=== PATIENT | female | born 1985 | race Caucasian/White ===

== ENCOUNTER → 2017-12-13 | Outpatient (CLI) | END | disposition home or self-care (01) ==

== ENCOUNTER 2018-06-26 11:42 | Inpatient (IN) | payer MEDICAID ==
[~2018-06-26] VITALS: Ht 162.6 cm; Wt 67.2 kg
[2018-06-26] MEDS ORDERED: LACTATED RINGER'S 1,000 ML IV SCH ×2 (11:46→19:40)
[2018-06-26] MEDS ORDERED: MISOPROSTOL 200 MCG TAB PR PRN ×2 (12:00→20:00)
[2018-06-26] MEDS ORDERED: METHYLERGONOVINE 0.2 MG INJ IM PRN ×2 (12:00→20:00)
[2018-06-26] MEDS ORDERED: CEFAZOLIN 2 GM/50 ML (PMX) 50 ML IVPB SCH (12:00)
[2018-06-26] MEDS ORDERED: OXYTOCIN 30 UNITS/LR 500 ML IV PRN ×2 (12:00→20:00)
[2018-06-26] MEDS ORDERED: CARBOPROST 250 MCG INJ IM PRN ×2 (12:00→20:00)
[2018-06-26] MEDS ORDERED: OXYTOCIN 30 UNITS/LR 500 ML IV SCH (12:00)
[2018-06-26 12:24] VITALS: BP 111/68; PULSE 72; RESP 16
[2018-06-26 12:27] VITALS: Ht 162.6 cm; Wt 67.2 kg
[2018-06-26] MEDS ORDERED: URSO300C21 PO (12:37)
[2018-06-26] MEDS ORDERED: ONDANSETRON 4 MG INJ IV STA (12:58)
[2018-06-26] MEDS ORDERED: METOCLOPRAMIDE 10 MG INJ IV ONE (13:00)
[2018-06-26] MEDS ORDERED: FAMOTIDINE 20 MG INJ IV ONE (13:00)
--- NOTE | 2018-06-26 13:40 | PREAC ---
Date/Time of Note Date/Time of Note DATE: 06/26/18 TIME: 13:39 Anesthesia Eval and Record Evaluation Time Pre-Procedure Interview DATE: 06/26/18 TIME: 13:39 Age 33 Sex female NPO: 8 hrs Preoperative diagnosis term labor, previous Csection Planned procedure repeat Csection Past Medical History Past Medical History: None Surgery & Anesthesia Issues No known issue Meds Anticoagulation: No Beta Inge within 24 hr: No Reason Beta Inge not given: Pt. not on B-Inge Reported Medications Ursodiol* (Actigall*) 300 Mg Cap, 300 MG PO TID, #90 CAP 06/26/18 Current Medications Lactated Ringer's 1,000 ml @ 125 mls/hr Q8H IV Last administered on 06/26/18at 12:37; Admin Dose 125 MLS/HR; Start 06/26/18 at 11:46 Cefazolin Sodium/ Dextrose 50 ml @ 100 mls/hr ONCE IVPB ; Start 06/26/18 at 12:00 Oxytocin/Lactated Ringer's 500 ml @ 125 mls/hr POST IV ; Start 06/26/18 at 12:00 Oxytocin/Lactated Ringer's 500 ml @ 0 mls/hr ONCE PRN IV .VAGINAL BLEEDING; Start 06/26/18 at 12:00 Methylergonovine Maleate (Methergine) 0.2 mg ONCE PRN IM .VAGINAL BLEEDING; Start 06/26/18 at 12:00 Carboprost Tromethamine (Hemabate) 250 mcg ONCE PRN IM .VAGINAL BLEEDING; Start 06/26/18 at 12:00 Misoprostol (Cytotec) 1,000 mcg ONCE PRN LA .VAGINAL BLEEDING; Start 06/26/18 at 12:00 Meds reviewed: Yes Allergies Coded Allergies: No Known Allergy (Unverified , 06/26/18) Allergies Reviewed: Yes Labs/Studies Labs Reviewed: Reviewed by anesthesiologist Result Diagram: 06/26/18 1210 Laboratory Tests 06/26/18 12:10 Blood Bank Test 06/26/18 12:10 Blood Type O POSITIVE Rh Immune Globulin Candidate NO test: Positive Pre-procedure Exam Last vitals Vital Signs Date Temp Pulse Resp B/P (MAP) Pulse Ox O2 O2 Flow FiO2 Time Delivery Rate 06/26/18 98.2 72 16 111/68 Room Air 12:24 (82) Airway: Adequate mouth opening, Adequate thyromental dist Mallampati: Mallampati III Teeth: Normal Lung: Normal Heart: Normal ASA Physical Status ASA physical status: 2 Emergency: None Planned Anesthetic Neuraxial: Spinal Planned Pain Management Sub-arachniod narcotics, Parenteral pain med, Other neuraxial med Pre-operative Attestations Prior to commencing anesthesia and surgery, the patient was re-evaluated, there was verification of: *The patient's identity *The results of appropriate recent lab work and preoperative vital signs *The above evaluation not changing prior to induction *Anesthetic plan, risk benefits, alternative and complications discussed with patient/family; questions answered; patient/family understands, accepts and wishes to proceed. CRISTINA JAIME MD Jun 26, 2018 13:40
[2018-06-26] MEDS ORDERED: ONDANSETRON 4 MG INJ IV PRN ×2 (14:00)
[2018-06-26] MEDS ORDERED: AZITHROMYCIN 500MG/NS (PMX) 250 ML IVPB ONE ×2 (14:00→17:30)
[2018-06-26] MEDS ORDERED: KETOROLAC 30 MG INJ IV PRN (14:00)
[2018-06-26] MEDS ORDERED: DIPHENHYDRAMINE 50 MG INJ IV PRN ×2 (14:00)
[2018-06-26] MEDS ORDERED: HYDROmorphONE 1 MG/5 ML IV SYRINGE IV PRN ×3 (14:00)
[2018-06-26] MEDS ORDERED: ZOLPIDEM 5 MG TAB PO PRN (14:00)
[2018-06-26] MEDS ORDERED: FENTAnyl 50 MCG/ML VIAL IV PRN ×2 (14:00)
[2018-06-26] MEDS ORDERED: MEPERIDINE 25 MG INJ IV PRN (14:00)
[2018-06-26] MEDS ORDERED: HYDROmorphONE 0.5 MG/0.5 ML SYG IV PRN ×2 (14:00)
[2018-06-26] MEDS ORDERED: NALOXONE (0.4 MG/ML) INJ IV PRN (14:00)
[2018-06-26] MEDS ORDERED: EPINEPHrine 1 MG INJ ONE (14:03)
[2018-06-26] MEDS ORDERED: morphine SULFATE/PF (10 MG/10 ML) INJ ONE (14:03)
[2018-06-26] MEDS ORDERED: OXYTOCIN 10 UNIT INJ ONE (14:04)
--- NOTE | 2018-06-26 17:02 | PAC ---
Date/Time of Note Date/Time of Note DATE: 06/26/18 TIME: 17:02 Post-Anesthesia Notes Post-Anesthesia Note Last documented vital signs Vital Signs Date Temp Pulse Resp B/P (MAP) Pulse Ox O2 O2 Flow FiO2 Time Delivery Rate 06/26/18 98.2 72 16 111/68 Room Air 12:24 (82) Activity: WNL Respiratory function: WNL Cardiovascular function: WNL Mental status: Baseline Pain reasonably controlled: Yes Hydration appropriate: Yes Nausea/Vomiting absent: Yes CRISTINA JAIME MD Jun 26, 2018 17:02
--- NOTE | 2018-06-26 17:06 | HP ---
Date/Time of Note Date/Time of Note DATE: 06/26/18 TIME: 17:03 OB - History Hx of Present Free Text/Dictation 33-year-old female 3 para 1 AB 1 at 37+ weeks gestation admitted for repeat and tubal ligation because of cholestasis Last Menstrual Period: Oct 06, 2017 Estimated Due Date: Jul 14, 2018 : 3 Para: 1 Spontaneous : 1 Care: Good Care Ultrasounds: Normal mid trimester US Obstetrical Complications: Other (Cholestasis of ) Medical Complications: Other (Previous x1) Past Family/Social History * Past Medical, Surgical, Family and Obstetric Histories reviewed from chart. Blood Type: O+ Rubella: immune RPR/VDRL: Negative GBS Status: Negative HBsAG: Negative OB Admission Exam Vital Signs Vital Signs Vital Signs Date Temp Pulse Resp B/P (MAP) Pulse Ox O2 O2 Flow FiO2 Time Delivery Rate 06/26/18 98.2 72 16 111/68 Room Air 12:24 (82) Physical Exam HEENT: WNL Heart: Rhythm Normal Lungs: Clear, Equal Abdomen: WNL Extremities: Normal Reflexes: Normal Cervical Dilatation: None Effacement: 0% Station: -3 Membranes: Intact Heart Rate: 140's Accelerations: Accelerations Present Decelerations: No Decelerations Varibility: Marked Contractions on Admission: None Last 72 hours Lab Results CBC & BMP 06/26/18 12:10 OB Assessment/Plan Reason for admission: section Other Assessment: 37+ weeks gestation Cholestasis of Previous x1 Desires sterilization Other plan: Repeat and tubal ligation DANE BLAND MD Jun 26, 2018 17:06
--- NOTE | 2018-06-26 17:08 | OPR ---
Operative Report Planned Procedure Procedure date Jun 26, 2018 Procedure(s) Repeat and tubal ligation Performed by see signature line Corn Cutter: BRET WILSON M.D. Anesthesiologist: CRISTINA JAIME MD Pre-procedure diagnosis 37+ weeks gestation Previous section Orthostasis of Desired sterilization [id number] Anesthesia Type: Enlvc9h spinal Post-Procedure Post-procedure diagnosis Status post repeat and tubal ligation Findings Live Baby in OT position Clear amniotic fluid Normal-appearing right and left fallopian tubes and ovaries Estimated Blood Loss: 500 - 600 mls Specimen(s) Segments of right and left fallopian tubes Grafts/Implant(s) none Complication(s) none Pt Condition post procedure: stable Disposition: PACU Procedure Description Under satisfactory anaesthesia a Pfannenstiel incision was made two fingerbreadth above and parallel to the symphysis of pubis around the previous scar and previous scar was removed Incision was extended laterally to the border of the Recti muscles on either sides. Incision was carried down with sharp and blunt dissection until fascia was reached. Anterior Recti muscle fascia was incised in mid portion and incision extended laterally to the border of skin incision. Fascia was mobilized from muscle superiorly and Recti muscles were from midline using sharp and blunt dissection. Peritoneum was visualized; Avoiding bowel and bladder it was incised . Incision was extended superiorly and inferiorly. Bladder blade was placed. Posterior peritoneum covering the lower segment of the uterus and lower segment of the uterus were incised.Low transverse uterine incision was made on lower segment of the uterus. Incision extended laterally to the border of Round Lig. on either sides and baby was delivered from OT. position . Amniotic fluid appeared clear. Cord blood was obtained and cord had 3 vessels . Placenta was delivered spontaneously and appeared intact and complete. Intrauterine cavity was rubbed with a laparotomy sponge. Uterine incision was closed in 2 layers using running stitches of No1 Monocryl. Hemostasis appeared secure. Ovaries and Fallopian tubes were within normal limits. Bilateral Tubal Ligation was performed by following procedure: R fallopian tube was raised in mid portion; a Mili clamp was placed below the fimbriae extending to proximal portion of the fallopian tube. Another clamp was placed parallel to the first and after incising the fallopian tube the stump was sutured using 0 Vicryl stitch. Hemostasis was secure . Same procedure was done on fallopian tube on the opposite side. Hemostasis appeared to be secure on ligated sites of either fallopian tubes. Announcing needle, lap sponge and instrument count to be correct abdomen was closed in layers as follows: Peritoneum and Recti muscles with running stitches of 20 Vicryl. Fascia with running stitch of No 1 PDS. Subcutaneous tissue with running stitches of 20 Chromic and skin was closed using edwin. Patient tolerated the procedure well and was transferred to [facility] in good condition. DANE BLAND MD Jun 26, 2018 17:08
[2018-06-26] MEDS ORDERED: KETOROLAC 30 MG INJ IV STA (17:09)
[2018-06-26 19:30] VITALS: BP 111/65; PULSE 91; RESP 18
[2018-06-26] MEDS ORDERED: NA PHOSPHATE/BIPHOS 133 ML ENEMA PR PRN (20:00)
[2018-06-26] MEDS ORDERED: LANOLIN HPA 1 PKT TOP PRN (20:00)
[2018-06-26] MEDS: SENNA/DOCUSATE NA (8.6MG/50MG) TAB PO SCH (21:06)
[2018-06-26] MEDS: CEFAZOLIN 2 GM/50 ML (PMX) 50 ML IVPB SCH (21:54)
[2018-06-26] MEDS: CLINDAMYCIN 300 MG CAP PO SCH (23:56)
[2018-06-27] VITALS: BP 108/63; PULSE 85; RESP 18
[2018-06-27] MEDS: KETOROLAC 30 MG INJ IV PRN ×2 (02:58→12:46)
[2018-06-27 04:00] VITALS: BP 105/57; PULSE 79; RESP 17
[2018-06-27] MEDS: CEFAZOLIN 2 GM/50 ML (PMX) 50 ML IVPB SCH ×2 (05:02→12:33)
[2018-06-27] MEDS ORDERED: LACTATED RINGER'S 1,000 ML IV SCH (05:30)
[2018-06-27] MEDS: CLINDAMYCIN 300 MG CAP PO SCH ×4 (06:07→23:44)
[2018-06-27 08:35] VITALS: BP 110/68; PULSE 78; RESP 20
[2018-06-27] MEDS: SENNA/DOCUSATE NA (8.6MG/50MG) TAB PO SCH ×2 (09:57→21:48)
[2018-06-27] MEDS ORDERED: BISACODYL 10 MG SUPP PR ONE (10:30)
[2018-06-27 12:33] VITALS: BP 112/67; PULSE 93; RESP 19
[2018-06-27 16:41] VITALS: BP 107/65; PULSE 80; RESP 19
--- NOTE | 2018-06-27 18:23 | PN ---
Date/Time of Note Date/Time of Note DATE: 06/27/18 TIME: 18:22 Assessment/Plan VTE Prophylaxis VTE Prophylaxis Intervention: ambulation Lines/Catheters IV Catheter Type (from Nrsg): Peripheral IV Assessment/Plan Assessment/Plan Status post postop day #1 Advance diet and ambulate Continue to monitor vital signs Subjective 24 Hr Interval Summary No bowel movement but passing flatus Constitutional: no complaints, improved, ambulates, BM, flatus, urine output Pain Control: well controlled Exam/Review of Systems Vital Signs Vitals Vital Signs Date Temp Pulse Resp B/P (MAP) Pulse Ox O2 O2 Flow FiO2 Time Delivery Rate 06/27/18 98.7 80 19 107/65 98 Room Air 16:41 (79) Intake and Output 06/26/18 06/26/18 06/27/18 1515:00 23:00 07:00 IntakeIntake Total 1800 ml 1310 ml OutputOutput Total 600 ml 1000 ml BalanceBalance 1200 ml 310 ml Exam Free Text/Dictation Abdomen is soft with present bowel sounds Incision is covered Abdomen does not seem distended Constitutional: alert, oriented, well developed Psych: no complaints, nl mood/affect Head: normocephalic, atraumatic Eyes: nl conjunctiva, EOMI, nl lids, nl sclera ENMT: nl external ears & nose, nl lips & teeth, nl nasal mucosa & septum, mucosa pink and moist Neck: supple, non-tender Respiratory: clear to auscultation, normal air movement Cardiovascular: regular rate and rhythm, nl pulses Gastrointestinal: soft, nl liver, spleen, non-tender Musculoskeletal: nl extremities to inspection, nl gait and stance Extremities: normal pulses Neurological: PROTECTIVE SIGNAL REPAIRER HELPER II-XII intact, nl mental status, nl speech, nl strength Skin: nl turgor, rash or lesions Lymph: nl lymph nodes Results Result Diagram: 06/27/18 0732 DANE BLAND MD Jun 27, 2018 18:23
[2018-06-27] MEDS: OXYCODONE/ACETAMINOPHEN (5/325) TAB PO PRN (18:57)
[2018-06-27 20:00] VITALS: BP 95/58; PULSE 80; RESP 18
[2018-06-27] MEDS: IBUPROFEN 800 MG TAB PO SCH (21:48)
[2018-06-28 03:50] VITALS: BP 102/53; PULSE 73; RESP 18
[2018-06-28] MEDS: OXYCODONE/ACETAMINOPHEN (5/325) TAB PO PRN (03:50)
[2018-06-28] MEDS: IBUPROFEN 800 MG TAB PO SCH ×3 (05:42→21:38)
[2018-06-28] MEDS: CLINDAMYCIN 300 MG CAP PO SCH ×4 (06:01→23:43)
[2018-06-28 08:35] VITALS: BP 99/56; PULSE 83; RESP 18
[2018-06-28] MEDS: SENNA/DOCUSATE NA (8.6MG/50MG) TAB PO SCH ×2 (10:09→21:38)
[2018-06-28] MEDS: HYDROCODONE/APAP (5/325) TAB PO PRN ×2 (11:26→18:13)
--- NOTE | 2018-06-28 14:44 | DS ---
Date/Time of Note Date/Time of Note Home today or next day DATE: 06/28/18 TIME: 14:43 Obstetrical Discharge Record Final Diagnosis Final Diagnosis: Term delivered Other Final Diagnosis Status post repeat and bilateral tubal ligation Vaginal Delivery Obstetrical Delivery: Bilateral Tubal Ligation Section Section: Repeat Condition on Discharge Physical Assessment Last Vitals: See nurse's notes Voiding: Yes Bowel Movement: Yes Breast: Soft, non-tender, Filling Fundus: Firm Abdomen and Incision: Abdomen is soft with present bowel sounds Incision is healing well without induration and or erythema Calf Tenderness: No Patient Condition: Good DANE BLAND MD Jun 28, 2018 14:44
--- NOTE | 2018-06-28 14:46 | DS ---
Date/Time of Note Date/Time of Note DATE: 06/28/18 TIME: 14:44 Discharge Summary Admission/Discharge Info Admit Date/Time Jun 26, 2018 at 11:42 Discharge Date/Time June 29 or June 28, 2018 Discharge Diagnosis Status post repeat and tubal ligation Patient Condition: Good Procedures Repeat delivery and bilateral tubal ligation Hx of Present Illness 33-year-old female had repeat and tubal ligation Hospital Course Patient had uncomplicated hospitalization course Tolerated diet well and was ambulating without complications Discharge home on his second or third day with good prognosis and condition Home Meds Reported Medications Ursodiol* (Actigall*) 300 Mg Cap, 300 MG PO TID, #90 CAP 06/26/18 Follow-up Plan Return to clinic in 3 4 days for staple removal Primary Care Provider Care Physician No Primary Time spent on discharge: > 30 minutes Pending Labs Laboratory Tests Test 06/28/18 06:25 Lab Scanned Report REFERENCE LAB [id number] DANE BLAND MD Jun 28, 2018 14:46
--- NOTE | 2018-06-28 14:47 | PD.PPDC ---
SUPPLY CHAIN PLANNER Discharge Instruction Provider Information Physician Information 33-year-old female had repeat and tubal ligation Diagnosis [id number] Final Diagnosis: Fnptd2f Status post repeat tubal ligation Condition [id number] Patient Condition: Mkxur2z Good Diet [id number] Diet: Souvh4w Resume Regular Diet Activity/Restrictions Igvke2Kw Activity: Yammk5n May Shower Fivki2Pt Restrictions: Zrnco4i No Exercising No Lifting Nothing in the Vagina Oloxv0Wv Return to Work or School: [id number] Aug 27, 2018 Wound/Drain Care Instructions [id number] Wound/Drain Care Instructions: Psohl9z Keep clean and dry Follow-up Follow-up with Physician: 3, 4, Day/Days (In clinic for staple removal) Return to clinic for Mgell3We GLASS FORMING ENGINEER Instructions: Luzzp4n Fever greater than 101 Chills [id number] OB Instructions: Bpdtz2d Breast Tenderness Depression Psouy9Ww Surgical Instructions: Wnzok7l Incisional Drainage Incisional Redness DANE BLAND MD Jun 28, 2018 14:47
[2018-06-28] MEDS ORDERED: IBUP800T48 PO (14:48)
[2018-06-28] MEDS ORDERED: ACET325T33 PO (14:48)
[2018-06-28] MEDS ORDERED: ACETAMINOPHEN 325 MG TAB PO PRN (15:00)
[2018-06-28 15:40] VITALS: BP 102/69; PULSE 79; RESP 20
[2018-06-28 20:00] VITALS: BP 93/61; PULSE 65; RESP 18
[2018-06-29 04:11] VITALS: BP 105/63; PULSE 70; RESP 18
[2018-06-29] MEDS: IBUPROFEN 800 MG TAB PO SCH (05:39)
[2018-06-29] MEDS: CLINDAMYCIN 300 MG CAP PO SCH ×2 (05:39→12:05)
[2018-06-29 08:00] VITALS: BP 103/72; PULSE 83; RESP 18
[2018-06-29] MEDS: SENNA/DOCUSATE NA (8.6MG/50MG) TAB PO SCH (08:27)
[2018-06-29] MEDS ORDERED: DIPHTH/TET/ACEL PERTUSS (ADULT) 0.5 ML VIAL IM* ONE (09:00)
[2018-06-29] MEDS ORDERED: MEASLES,MUMPS,RUBELLA VACCINE INJ SC* ONE (09:00)
--- NOTE | 2018-06-30 15:29 | DELSUM ---
Delivery Summary A-C Datetime Report Generated by CPN: 06/30/2018 15:28 DELIVERY PERSONNEL End Matcher: Berry Boyer MATERNAL INFORMATION Delivery Anesthesia: Spinal Medications in Delivery: SEE ANESTHESIA RECORDS Delivery QBL (ml): 600 Placenta Cultured: No Maternal Complications: Other Other Maternal Complications: CHOLESTASIS LABOR SUMMARY EDC: 07/14/2018 00:00 No. Babies in Womb: 1 Attempted: No Labor Anesthesia: None LABOR INFORMATION Reason for Induction: Not Applicable Oxytocin: N/A Group B Beta Strep: Negative Antibiotics # of Doses: 2 Antibiotics Time of Last Dose: 06/26/2018 15:40 Steroids Given: None Reason Steroids Not Administered: Not Applicable MEMBRANES Membranes Rupture Method: Artificial Rupture of Membranes: 06/26/2018 16:04 Length of Rupture (hr): 0.02 Amniotic Fluid Color: Clear Amniotic Fluid Amount: Moderate Amniotic Fluid Odor: None STAGES OF LABOR Stage 3 hr: 0 Stage 3 min: 2 CSECTION DELIVERY Primary Indication: Repeat Elective Secondary Indication: Other Other Secondary Indication: CHOLESTASIS CSection Urgency: Elective CSection Incidence: Repeat Labor: No Labor Elective: N/A CSection Incision: Lower Uterine Transverse Sterilization Procedure: [place] BABY A INFORMATION Delivery Date/Time: 06/26/2018 16:05 Method of Delivery: Born in Route : No : N/A Forceps: N/A Vacuum Extraction: N/A Shoulder Dystocia : No SHOULDER DYSTOCIA BABY A Infant Delivery Date/Time: 06/26/2018 16:05 PRESENTATION/POSITION BABY A Presentation: Cephalic Cephalic Presentation: Vertex Breech Presentation: N/A PLACENTA INFORMATION BABY A Placenta Delivery Time : 06/26/2018 16:07 Placenta Method of Delivery: Manual Removal Placenta Status: Delivered SCORES BABY A Heart Rate 1 min: >100 bpm Resp Effort 1 min: Good Cry Reflex Irritability 1 min: Cough/Sneeze/Pulls Away Muscle Tone 1 min: Active Motion Color 1 min: Blue/Pale Resuscitation Effort 1 min: Tactile Stimulation SCORE 1 MIN: 8 Heart Rate 5 min: >100 bpm Resp Effort 5 min: Good Cry Reflex Irritability 5 min: Cough/Sneeze/Pulls Away Muscle Tone 5 min: Active Motion Color 5 min: Body [place], Extremit Blue Resuscitation Effort 5 min: Tactile Stimulation SCORE 5 MIN: 9 INFORMATION BABY A Gestational Age at Delivery: 37.3 Gestational Status: Early Term- 37- 38.6 Weeks Outcome : Liveborn Condition : Stable Sex: Male IDENTIFICATION/MEDS BABY A ID Band Number: [id number] ID Band Location: Right Leg; Left Arm Sensor Applied: Yes Sensor Number: [id number] Sensor Location : Cord Clamp Vitamin K Given : Not Given Erythromycin Given: Not Given WEIGHT/LENGTH BABY A Birthweight (gm): 3650 Weight (lb): 8 Weight (oz): 1 Infant Length (in): 20.00 Infant Length (cm): 50.80 CORD INFORMATION BABY A No. Cord Vessels: 3 Nuchal Cord : Around Neck x1, Loose True Knot: 0 Cord Blood Taken: Yes Suction: Mouth; Nose ASSESSMENT BABY A Complications: None Physical Findings at Delivery: Within Normal Limits Infant Respirations: Appears Normal Economic Analyst/ALS Called : No Infant Care By: JULY RN Transferred To: Remains with Mother
== END 2018-06-29 15:28 | disposition home or self-care (01) | DRG 783 ==
LOC: L-D 11:42 → PP1 19:18
PROVIDERS: ADMIT Obstetrics & Gynecology; ATTEND Obstetrics & Gynecology
PROC: 0UB70ZZ Excision of Bilateral Fallopian Tubes, Open Approach (ICD-10-PCS; 2018-06-26)
PROC: 10D00Z1 Extraction of Products of Conception, Low, Open Approach (ICD-10-PCS; principal; 2018-06-26 14:00)
DX: O26.62 Liver and biliary tract disorders in childbirth (principal); K83.1 Obstruction of bile duct; O34.219 Maternal care for unspecified type scar from previous cesarean delivery; Z3A.37 37 weeks gestation of pregnancy; Z37.0 Single live birth; Z30.2 Encounter for sterilization
CPT/HCPCS: 85025; 85610; 85730; 86592; 86850; 86900; 86901; 87340; 88302; 99464; J0171; J0456; J0690; J1200; J1885; J2274; J2405; J2590; J2765; J7120